=== PATIENT | male | born 1965 | race African-American/Black ===

== ENCOUNTER 2018-09-23 18:55 | Emergency (ER) | payer MEDICAID ==
--- NOTE | 2018-09-23 19:49 | ER Document Report ---
ED Medical Screen (RME) - General Chief Complaint: Numbness of Arm Stated Complaint: L ARM NUMBNESS Time Seen by Provider: 09/23/18 19:19 Mode of Arrival: Medic Information source: Patient, Emergency Med Personnel Notes: Patient presents to the emergency department via EMS for altered mental status and left arm pain. Patient reports he was playing cards with some friends when his left arm started hurting and his hand became numb. Denied other symptoms such as chest pain shortness of breath nausea vomiting. Denies trauma. EMS reports friends said patient mental status was altered when they were playing cards. Patient does admit to drinking a few beers. Reports history of back pain. 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 No weakness noted patient answering all questions appropriately. Patient complains of pain when lifting his arm above his head. Also complains of pain to the left shoulder with palpation. I have greeted and performed a rapid initial assessment of this patient. A comprehensive ED assessment and evaluation of the patient, analysis of test results and completion of the medical decision making process will be conducted by additional ED providers. Doctor's Discharge - Discharge Referrals: ANNELNO [Primary Care Provider] - Follow up as needed
--- NOTE | 2018-09-23 19:51 | RADIOLOGY REPORT (SQ) ---
EXAM DESCRIPTION: CT HEAD WITHOUT COMPLETED DATE/TIME: 09/23/2018 7:41 pm REASON FOR STUDY: altered mental status COMPARISON: None. TECHNIQUE: Axial images acquired through the brain without intravenous contrast. Images reviewed wi th bone, brain and subdural windows. Additional sagittal and coronal reconstructions were generated. Images stored on PACS. All CT scanners at this facility use dose modulation, iterative reconstruction, and/or weight based d osing when appropriate to reduce radiation dose to as low as reasonably achievable (ALARA). [facility]: Dose Right [facility]: CareDose [facility]: Dose Right [facility]: Teradose 4D [facility]: Smart Interact.io RADIATION DOSE: CT Rad equipment meets quality standard of care and radiation dose reduction techniq ues were employed. CTDIvol: 53.2 mGy. DLP: 991 mGy-cm. mGy. LIMITATIONS: None. FINDINGS: VENTRICLES: Normal size and contour. CEREBRUM: No masses. No hemorrhage. No midline shift. No evidence for acute infarction. Normal gra y/white matter differentiation. No areas of low density in the white matter. CEREBELLUM: No masses. No hemorrhage. No alteration of density. No evidence for acute infarction. EXTRAAXIAL SPACES: No fluid collections. No masses. ORBITS AND GLOBE: No intra- or extraconal masses. Normal contour of globe without masses. CALVARIUM: No fracture. PARANASAL SINUSES: No fluid or mucosal thickening. SOFT TISSUES: No mass or hematoma. OTHER: No other significant finding. IMPRESSION: NORMAL BRAIN CT WITHOUT CONTRAST. EVIDENCE OF ACUTE STROKE: NO. COMMENT: Quality ID # [id number]: Final reports with documentation of one or more dose reduction techniques (e.g., Automated exposure control, adjustment of the mA and/or kV according to patient size, use of iterative reconstruction technique) TECHNICAL DOCUMENTATION: JOB ID: [id number] [employer]- All Rights Reserved Reading location - IP/workstation name: [email or web address]
[2018-09-23 20:27] LABS: ABSOLUTE BASOPHILS # (AUTO) 0.1 10^3/uL (0.0-0.2); ABSOLUTE EOSINOPHILS # (AUTO) 0.2 10^3/uL (0.0-0.6); ABSOLUTE MONOCYTES (AUTO) 0.6 10^3/uL (0.1-1.4); ABSOLUTE NEUT (AUTO) 2.6 10^3/uL (1.7-8.2); BASOPHILS % (AUTO) 1.1 % (0-2); EOSINOPHILS % (AUTO) 4.2 % (0-6); HEMATOCRIT 39.3 % (37.9-51.0); HEMOGLOBIN 13.6 g/dL (13.5-17.0); LYMPHOCYTES % (AUTO) 36.2 % (13-45); MEAN CORPUSCULAR HEMOGLOBIN 35.9 pg (27.0-33.4); MEAN CORPUSCULAR HGB CONC 34.6 g/dL (32.0-36.0); MEAN CORPUSCULAR VOLUME 104 fl (80-97); MONOCYTES % (AUTO) 10.4 % (3-13); PLATELET COUNT 280 10^3/uL (150-450); RED BLOOD COUNT 3.78 10^6/uL (4.35-5.55); SEGMENTED NEUTROPHILS % (AUTO) 48.1 % (42-78); TOTAL CELLS COUNTED % (AUTO) 100 %; WHITE BLOOD COUNT 5.4 10^3/uL (4.0-10.5)
[2018-09-23 20:31] LABS: ALANINE AMINOTRANSFERASE 41 U/L (21-72); ALBUMIN 3.9 g/dL (3.5-5.0); ALKALINE PHOSPHATASE 60 U/L (38-126); ANION GAP 9 (5-19); ASPARTATE AMINO TRANSFERASE 72 U/L (17-59); BILIRUBIN,DIRECT 0.3 mg/dL (0.0-0.4); BILIRUBIN,TOTAL 0.5 mg/dL (0.2-1.3); BLOOD UREA NITROGEN 11 mg/dL (7-20); CALCIUM 9.1 mg/dL (8.4-10.2); CARBON DIOXIDE 27 mmol/L (22-30); CHLORIDE 105 mmol/L (98-107); CREATINE KINASE 273 U/L (55-170); GLUCOSE 79 mg/dL (75-110); POTASSIUM 4.6 mmol/L (3.6-5.0); SODIUM 141.3 mmol/L (137-145); TOTAL PROTEIN 6.9 g/dL (6.3-8.2)
[2018-09-23 20:45] LABS: CREATINE KINASE MB 2.54 ng/mL (<4.55)
[2018-09-23 20:47] LABS: TROPONIN I < 0.012 ng/mL
--- NOTE | 2018-09-23 21:39 | ER Document Report ---
ED General - General Chief Complaint: Numbness of Arm Stated Complaint: L ARM NUMBNESS Time Seen by Provider: 09/23/18 19:19 Mode of Arrival: Medic Information source: Patient, [facility] Records Notes: 53-year-old male with no reported past medical history presents with complaint of left arm pain that started 2 hours prior to arrival while playing cards. Patient describes the pain as aching, throbbing and worse with movement. He does describe some left arm and left lower extremity weakness. Denies chest pain, shortness of breath, recent illness. Denies any current medication use. Does admit to drinking alcohol earlier today, states "only 2 beers".. Does smoke tobacco. - HPI Onset: Just prior to arrival Onset/Duration: Sudden Quality of pain: Achy, Throbbing Severity: Moderate Associated symptoms: denies: Chest pain, Fever, Headache, Nausea, Vomiting, Shortness of breath, Sweating Exacerbated by: Movement Relieved by: Remaining still Similar symptoms previously: No Recently seen / treated by doctor: No Past Medical History - General Information source: Patient, Emergency Med Personnel - Social History Smoking Status: Current Every Day Smoker Cigarette use (# per day): Yes - 20 Smoking Education Provided: Yes - Smoking cessation counseling was provided for 4 minutes at the bedside Frequency of alcohol use: Occasional Drug Abuse: None Lives with: Alone Family History: Reviewed & Not Pertinent Patient has suicidal ideation: No Patient has homicidal ideation: No - Medical History Medical History: Negative Review of Systems - Review of Systems Notes: REVIEW OF SYSTEMS: CONSTITUTIONAL : Denies fever, chills, or sweats. Denies recent illness. Denies weight loss, recent hospitalizations. EENT: Denies visual changes, eye pain. Denies sore throat, oral lesions, difficulty swallowing. CARDIOVASCULAR: Denies chest pain. Denies palpitations. Denies lower extremity edema. RESPIRATORY: Denies cough. Denies shortness of breath, wheezing. GASTROINTESTINAL: Denies abdominal pain or distention. Denies nausea, vomitin g, or diarrhea. Denies blood in vomitus, stools, or per rectum. Denies black, tarry stools. Denies constipation. GENITOURINARY: Denies difficulty urinating, painful urination, frequency, blood in urine, testicular pain or penile discharge. MUSCULOSKELETAL: Denies back or neck pain or stiffness. Denies joint swelling. SKIN: Denies rash, lesions or sores. HEMATOLOGIC : Denies easy bruising or bleeding. LYMPHATIC: Denies swollen glands. NEUROLOGICAL: Denies confusion or altered mental status. Denies loss of consciousness. Denies dizziness or lightheadedness. Denies headache. Denies paralysis. Denies problems difficulty with ambulation, slurred speech. Denies sensory loss, numbness, or tingling. Denies seizures. PSYCHIATRIC: Denies anxiety or stress. Denies depression, suicidal ideation, or Physical Exam - Vital signs Vitals: Resp Pulse Ox 23 H 99 09/23/18 19:22 09/23/18 19:22 - Notes Notes: PHYSICAL EXAMINATION: GENERAL: Well-appearing, well-nourished and in no acute distress. HEAD: Atraumatic, normocephalic. EYES: Pupils equal round and reactive to light, extraocular movements intact, sclera anicteric, conjunctiva are normal. ENT: Nares patent, oropharynx clear without exudates. Moist mucous membranes. NECK: Normal range of motion, supple without lymphadenopathy LUNGS: Breath sounds clear to auscultation bilaterally and equal. No wheezes rales or rhonchi. HEART: Regular rate and rhythm without murmurs ABDOMEN: Soft, nontender, nondistended abdomen. No guarding, no rebound. No masses appreciated. Musculoskeletal: Normal range of motion, no pitting or edema. No cyanosis. NEUROLOGICAL: Cranial nerves grossly intact. Normal speech, normal gait. Normal sensory, motor exams. 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 PSYCH: Normal mood, normal affect. SKIN: Warm, Dry, normal turgor, no rashes or lesions noted. Course - Re-evaluation Re-evalutation: 09/24/18 01:16 Laboratory 09/23/18 09/23/18 09/23/18 19:20 19:20 19:20 WBC 5.4 RBC 3.78 L Hgb 13.6 Hct 39.3 MCV 104 H MCH 35.9 H MCHC 34.6 RDW 15.0 H Plt Count 280 Seg Neutrophils % 48.1 Lymphocytes % 36.2 Monocytes % 10.4 Eosinophils % 4.2 Basophils % 1.1 Absolute Neutrophils 2.6 Absolute Lymphocytes 2.0 Absolute Monocytes 0.6 Absolute Eosinophils 0.2 Absolute Basophils 0.1 Sodium 141.3 Potassium 4.6 Chloride 105 Carbon Dioxide 27 Anion Gap 9 BUN 11 Creatinine 1.12 Est GFR ( Amer) > 60 Est GFR (Non-Af Amer) > 60 Glucose 79 Calcium 9.1 Total Bilirubin 0.5 Direct Bilirubin 0.3 Neonat Total Bilirubin Not Reportable Neonat Direct Bilirubin Not Reportable Neonat Indirect Bili Not Reportable AST 72 H ALT 41 Alkaline Phosphatase 60 Creatine Kinase 273 H CK-MB (CK-2) 2.54 Troponin I < 0.012 Total Protein 6.9 Albumin 3.9 Urine Color Urine Appearance Urine pH Ur Specific [place] Urine Protein Urine Glucose (UA) Urine Ketones Urine Blood Urine Nitrite Urine Bilirubin Urine Urobilinogen Ur Leukocyte Esterase Urine WBC (Auto) Squamous Epi Cells Auto Urine Ascorbic Acid Urine Opiates Screen Urine Methadone Screen Ur Barbiturates Screen Ur Phencyclidine Scrn Ur Amphetamines Screen U Benzodiazepines Scrn Urine Cocaine Screen U Marijuana (THC) Screen Serum Alcohol 09/23/18 09/23/18 09/23/18 19:20 19:20 19:20 WBC RBC Hgb Hct MCV MCH MCHC RDW Plt Count Seg Neutrophils % Lymphocytes % Monocytes % Eosinophils % Basophils % Absolute Neutrophils Absolute Lymphocytes Absolute Monocytes Absolute Eosinophils Absolute Basophils Sodium Potassium Chloride Carbon Dioxide Anion Gap BUN Creatinine Est GFR ( Amer) Est GFR (Non-Af Amer) Glucose Calcium Total Bilirubin Direct Bilirubin Neonat Total Bilirubin Neonat Direct Bilirubin Neonat Indirect Bili AST ALT Alkaline Phosphatase Creatine Kinase CK-MB (CK-2) Troponin I Total Protein Albumin Urine Color STRAW Urine Appearance CLEAR Urine pH 5.0 Ur Specific [place] 1.004 Urine Protein NEGATIVE Urine Glucose (UA) NEGATIVE Urine Ketones NEGATIVE Urine Blood NEGATIVE Urine Nitrite NEGATIVE Urine Bilirubin NEGATIVE Urine Urobilinogen NEGATIVE Ur Leukocyte Esterase NEGATIVE Urine WBC (Auto) 1 Squamous Epi Cells Auto 1 Urine Ascorbic Acid NEGATIVE Urine Opiates Screen NEGATIVE Urine Methadone Screen NEGATIVE Ur Barbiturates Screen NEGATIVE Ur Phencyclidine Scrn NEGATIVE Ur Amphetamines Screen NEGATIVE U Benzodiazepines Scrn NEGATIVE Urine Cocaine Screen NEGATIVE U Marijuana (THC) Screen NEGATIVE Serum Alcohol 268 09/23/18 21:54 WBC RBC Hgb Hct MCV MCH MCHC RDW Plt Count Seg Neutrophils % Lymphocytes % Monocytes % Eosinophils % Basophils % Absolute Neutrophils Absolute Lymphocytes Absolute Monocytes Absolute Eosinophils Absolute Basophils Sodium Potassium Chloride Carbon Dioxide Anion Gap BUN Creatinine Est GFR ( Amer) Est GFR (Non-Af Amer) Glucose Calcium Total Bilirubin Direct Bilirubin Neonat Total Bilirubin Neonat Direct Bilirubin Neonat Indirect Bili AST ALT Alkaline Phosphatase Creatine Kinase CK-MB (CK-2) Troponin I < 0.012 Total Protein Albumin Urine Color Urine Appearance Urine pH Ur Specific [place] Urine Protein Urine Glucose (UA) Urine Ketones Urine Blood Urine Nitrite Urine Bilirubin Urine Urobilinogen Ur Leukocyte Esterase Urine WBC (Auto) Squamous Epi Cells Auto Urine Ascorbic Acid Urine Opiates Screen Urine Methadone Screen Ur Barbiturates Screen Ur Phencyclidine Scrn Ur Amphetamines Screen U Benzodiazepines Scrn Urine Cocaine Screen U Marijuana (THC) Screen Serum Alcohol Head CT 09/23/18 00:00 IMPRESSION: NORMAL BRAIN CT WITHOUT CONTRAST. EVIDENCE OF ACUTE STROKE: NO. Head MRI 09/23/18 21:35 IMPRESSION: No acute intracranial abnormality. Shoulder X-Ray 09/23/18 21:35 IMPRESSION: Mild degenerative changes. copyright 2010 [employer] All Rights Reserved Chest X-Ray 09/23/18 21:41 IMPRESSION: Pulmonary vascular congestion. Temp Pulse Resp BP Pulse Ox 19 138/84 H 94 09/23/18 23:01 09/23/18 23:01 09/23/18 21:01 53-year-old male presents with left shoulder pain that occurred just prior to arrival. Denies injury. Vital signs reviewed and within normal limits upon arrival. 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 Vital signs reviewed. Previous medical records and nursing notes reviewed. Patient denies any chest pain, shortness of breath. Because of decreased strength in the left upper extremity and reports of altered mental status CT head was obtained and showed no acute process. MRI was also obtained and showed no evidence of stroke. CBC, CMP, cardiac enzymes are unremarkable. Chest x-ray shows evidence of pulmonary vascular congestion without evidence of cardiomegaly. Patient's lung sounds are clear and he denies any shortness of breath or peripheral edema. Smoking cessation advised. Also advised that patient should establish primary care. Patient's alcohol level is 268 which is not consistent with his report of only drinking 2 beers. He is alert, awake and ambulates without difficulty but will need to find a ride home. Patient was given Toradol and prescribed Mobic for home. Patient was evaluated and treated as appropriate for the patient's presenting symptoms and complaint, with consideration of any critical or life threatening conditions that may be associated with their obtained history and exam as noted above. All results were discussed with patient. Patient provided the opportunity to ask questions, and express concerns. Patient was educated on treatments based on their presumed diagnosis as noted above. At this time we will discharge the patient with return precautions and follow-up recommendations. Verbal discharge instructions given a the bedside. Medication warnings reviewed. Patient is in agreement with this plan and has verbalized understanding of return precautions. After careful consideration I feel that that patient can be safely discharged from the emergency department, they were advised to followup with a primary care physician in 2-3 days. Dictation on this chart was performed using voice recognition software and may result in unintended grammatical, spelling, syntax or errors. 09/24/18 02:37 - Vital Signs Vital signs: Temp Pulse Resp BP Pulse Ox 14 138/90 H 100 09/24/18 01:01 09/24/18 00:01 09/24/18 01:01 - Laboratory Result Diagrams: 09/23/18 19:20 09/23/18 19:20 Laboratory results interpreted by me: 09/23/18 09/23/18 19:20 19:20 RBC 3.78 L MCV 104 H MCH 35.9 H RDW 15.0 H AST 72 H Creatine Kinase 273 H - Diagnostic Test Radiology reviewed: Image reviewed, Reports reviewed Discharge - Discharge Clinical Impression: Arthritis of left shoulder region, Elevated blood pressure reading, Tobacco use, Pulmonary vascular congestion Alcohol intoxication Qualifiers: Complication of substance-induced condition: uncomplicated Qualified Code(s): F10.920 - Alcohol use, unspecified with intoxication, uncomplicated Condition: Good Disposition: HOME, SELF-CARE Instructions: Acute Alcohol Intoxication ([facility]), Arthritis ([facility]), Exercise Program for the Shoulder ([facility]), Shoulder Injury ([facility]) Additional Instructions: Follow up with your [id number] hours for further care or return to the ED IMMEDIATELY if symptoms worsen or you have any concerns. If you cannot afford to follow up with your primary care physician a list of low cost clinics have been provided at the end of your discharge papers as well. Most prescribed medications have multiple side effects. The safest thing to do is when filling your prescription speak to your pharmacist regarding possible interactions with your normal home medications and over the counter medications such as Ibuprofen, Tylenol, Benadryl. If you experience any symptoms that cause you discomfort or concern you should discontinue the medication immediately and return to the emergency room or call your primary care physician. Prescriptions: Meloxicam [Mobic] 15 mg PO DAILY #14 tablet Forms: Elevated Blood Pressure, Smoking Cessation Education Referrals: LOCALMD,NO [NO LOCAL MD] - Follow up as needed [facility] [NO LOCAL MD] - Follow up in 3-5 days
[2018-09-23 22:07] LABS: APPEARANCE,URINE CLEAR; BILIRUBIN,URINE NEGATIVE (NEGATIVE); COLOR,URINE STRAW; GLUCOSE, URINE NEGATIVE (NEGATIVE); KETONES,URINE NEGATIVE (NEGATIVE); LEUKOCYTE ESTERASE,URINE NEGATIVE (NEGATIVE); NITRITE,URINE NEGATIVE (NEGATIVE); PROTEIN,URINE NEGATIVE (NEGATIVE); URINE SPECIFIC GRAVITY 1.004; UROBILINOGEN,URINE NEGATIVE mg/dL (<2.0)
[2018-09-23] MEDS ORDERED: MORPHINE SULFATE 10 MG/ML INJ IV ONE (22:24)
[2018-09-23 22:38] LABS: URINE AMPHETAMINES SCREEN NEGATIVE; URINE BARBITURATES SCREEN NEGATIVE; URINE BENZODIAZEPINES SCREEN NEGATIVE; URINE COCAINE SCREEN NEGATIVE; URINE MARIJUANA (THC) SCREEN NEGATIVE; URINE METHADONE SCREEN NEGATIVE; URINE PHENCYCLIDINE SCREEN NEGATIVE
--- NOTE | 2018-09-23 22:46 | RADIOLOGY REPORT (SQ) ---
MR BRAIN WITHOUT IV CONTRAST HISTORY: Left arm weakness. COMPARISON: CT scan from earlier the same day. TECHNIQUE: Multisequence, multiplanar MR imaging of the brain was performed without the administration of intravenous gadolinium. FINDINGS: The ventricles, sulci and cisterns are age appropriate. No restricted diffusion to indicate acute infarction. No intracranial hemorrhage, extra-axial fluid collection, mass effect, or midline shift. The paranasal sinuses and mastoid air cells are clear. The orbits are unremarkable. The vascular flow voids are preserved. The calvarium is intact. IMPRESSION: No acute intracranial abnormality.
--- NOTE | 2018-09-23 22:54 | RADIOLOGY REPORT (SQ) ---
EXAM DESCRIPTION: XR CHEST 2 VIEWS COMPLETED DATE/TME: 09/23/2018 21:41 CLINICAL HISTORY: 53 years Male, Left arm pain COMPARISON: None. NUMBER OF VIEWS/TECHNIQUE: 2, Frontal, Lateral FINDINGS: Adequate lung volume, pulmonary vascular congestion, normal cardiac silhouette, and lateral right seventh rib deformity consistent with prior injury. IMPRESSION: Pulmonary vascular congestion.
--- NOTE | 2018-09-23 22:55 | RADIOLOGY REPORT (SQ) ---
EXAM DESCRIPTION: XR SHOULDER 2 OR MORE VIEWS COMPLETED DATE/TME: 09/23/2018 21:35 CLINICAL HISTORY: 53 years, Male, pain COMPARISON: None. NUMBER OF VIEWS: TECHNIQUE: LIMITATIONS: None. FINDINGS: No fracture or dislocation. There are mild degenerative changes involving the glenohumeral and acromioclavicular joints. IMPRESSION: Mild degenerative changes. copyright 2010 [employer]- All Rights Reserved
--- NOTE | 2018-09-23 23:00 | EKG REPORT ---
SEVERITY:- ABNORMAL ECG - SINUS RHYTHM ABNRM R PROG, CONSIDER ASMI OR LEAD PLACEMENT ABNORMAL T, CONSIDER ISCHEMIA, INFERIOR LEADS : Confirmed by: Annmarie Vogt MD 23-Sep-2018 22:59:55
[2018-09-24] MEDS ORDERED: KETOROLAC TROMETHAMINE INJ/PF 30 MG/1 ML SDV IV ONE (00:02)
[2018-09-24] MEDS ORDERED: ACETAMINOPHEN 325 MG TABLET PO ONE (00:02)
[2018-09-24 07:04] VITALS: BP 148/84
== END 2018-09-24 07:20 | disposition home or self-care (01) ==
LOC: ER 18:55
DX: M19.012 Primary osteoarthritis, left shoulder (principal); F10.129 Alcohol abuse with intoxication, unspecified; Y90.8 Blood alcohol level of 240 mg/100 ml or more; R03.0 Elevated blood-pressure reading, without diagnosis of hypertension; R09.89 Other specified symptoms and signs involving the circulatory and respiratory systems; R20.0 Anesthesia of skin; M79.602 Pain in left arm; M25.512 Pain in left shoulder; R53.1 Weakness; F17.210 Nicotine dependence, cigarettes, uncomplicated; Z71.6 Tobacco abuse counseling
CPT/HCPCS: 93005; 99406; 99284; 96374; 36415; 82553; 80307 ×2; 82550; 85025; 80053; 81001; 84484; 70551; 71046; 73030; 70450; 93010; J3490; J1885

== ENCOUNTER 2019-10-02 18:24 | Emergency (ER) | payer MEDICAID ==
[2019-10-02] MEDS ORDERED: ACETAMINOPHEN 325 MG TABLET PO ONE (19:48)
--- NOTE | 2019-10-02 19:50 | ER Document Report ---
ED Medical Screen (RME) - General Chief Complaint: Leg Pain Stated Complaint: LEG PAIN Time Seen by Provider: 10/02/19 19:43 Information source: Patient Notes: Patient presents complaining of left lower extremity pain and swelling for the past 3 days. Patient denies any injury. Patient states pain is worse to the left knee although the entire leg is painful. Patient does have a history of gout. Patient denies any fever or injury. I have greeted and performed a rapid initial assessment of this patient. A comprehensive ED assessment and evaluation of the patient, analysis of test results and completion of the medical decision making process will be conducted by additional ED providers. - Related Data Allergies/Adverse Reactions: No Known Allergies Allergy (Unverified 10/02/19 19:48) Past Medical History - Social History Chew tobacco use (# tins/day): No Frequency of alcohol use: Occasional Drug Abuse: None Renal/ Medical History: Denies: Hx Peritoneal Dialysis Physical Exam - Vital signs Vitals: Temp Pulse Resp BP Pulse Ox 98.6 F 110 H 20 143/93 H 99 10/02/19 19:05 10/02/19 19:05 10/02/19 19:05 10/02/19 19:05 10/02/19 19:05 - General General appearance: Appears well, Alert Notes: Left medial knee tenderness, tenderness with palpation of left calf Course - Vital Signs Vital signs: Temp Pulse Resp BP Pulse Ox 98.6 F 110 H 20 143/93 H 99 10/02/19 19:05 10/02/19 19:05 10/02/19 19:05 10/02/19 19:05 10/02/19 19:05
[2019-10-02 20:30] LABS: ABSOLUTE BASOPHILS # (AUTO) 0.1 10^3/uL (0.0-0.2); ABSOLUTE EOSINOPHILS # (AUTO) 0.3 10^3/uL (0.0-0.6); ABSOLUTE LYMPHOCYTES (AUTO) 1.3 10^3/uL (0.5-4.7); ABSOLUTE MONOCYTES (AUTO) 0.9 10^3/uL (0.1-1.4); ABSOLUTE NEUT (AUTO) 5.5 10^3/uL (1.7-8.2); BASOPHILS % (AUTO) 0.6 % (0-2); EOSINOPHILS % (AUTO) 3.3 % (0-6); HEMOGLOBIN 14.9 g/dL (13.5-17.0); LYMPHOCYTES % (AUTO) 16.5 % (13-45); MEAN CORPUSCULAR HEMOGLOBIN 37.1 pg (27.0-33.4); MEAN CORPUSCULAR HGB CONC 34.6 g/dL (32.0-36.0); MEAN CORPUSCULAR VOLUME 107 fl (80-97); MONOCYTES % (AUTO) 11.5 % (3-13); PLATELET COUNT 168 10^3/uL (150-450); RED BLOOD COUNT 4.01 10^6/uL (4.35-5.55); RED CELL DISTRIBUTION WIDTH 14.4 % (11.5-14.0); SEGMENTED NEUTROPHILS % (AUTO) 68.1 % (42-78); TOTAL CELLS COUNTED % (AUTO) 100 %; WHITE BLOOD COUNT 8.1 10^3/uL (4.0-10.5)
--- NOTE | 2019-10-02 20:33 | RADIOLOGY REPORT (SQ) ---
EXAM DESCRIPTION: XR KNEE 4 OR MORE VIEWS COMPLETED DATE/TME: 10/02/2019 19:47 CLINICAL HISTORY: 54 years, Male, L knee pain COMPARISON: None. NUMBER OF VIEWS: 4 left TECHNIQUE: LIMITATIONS: None. FINDINGS: No acute displaced fracture. Alignment is anatomic. Small joint effusion. No soft tissue swelling IMPRESSION: No acute displaced fracture. Small joint effusion copyright 2010 [employer]- All Rights Reserved
[2019-10-02 20:51] LABS: ANION GAP 8 (5-19); BLOOD UREA NITROGEN 4 mg/dL (7-20); CALCIUM 9.1 mg/dL (8.4-10.2); CARBON DIOXIDE 28 mmol/L (22-30); CHLORIDE 101 mmol/L (98-107); GLUCOSE 101 mg/dL (75-110); POTASSIUM 3.8 mmol/L (3.6-5.0); URIC ACID 7.6 mg/dL (3.5-8.5)
--- NOTE | 2019-10-02 21:14 | RADIOLOGY REPORT (SQ) ---
EXAM DESCRIPTION: [employer]: US EXTREMITY VEINS UNILATERAL CLINICAL HISTORY: 54 years Male; LLE pain, swelling TECHNIQUE: Multiple grayscale sonographic images of the leg were obtained utilizing a high-frequency linear array transducer supplemented with color Doppler, compression and augmentation techniques. COMPARISON: None. FINDINGS: Left leg veins: Common femoral: normal Greater saphenous: normal upper Superficial femoral: normal mid Superficial femoral: normal lower Superficial femoral: normal Popliteal: normal Posterior tibial: normal IMPRESSION: 1. No sonographic evidence for left lower extremity deep venous thrombosis.
[2019-10-03] MEDS ORDERED: IBUPROFEN 600 MG TABLET PO ONE (00:15)
--- NOTE | 2019-10-03 00:17 | ER Document Report ---
ED Extremity Problem, Lower - General Chief Complaint: Leg Pain Stated Complaint: LEG PAIN Time Seen by Provider: 10/02/19 19:43 Primary Care Provider: [facility] [Provider [facility]] - Follow up as needed [facility] [Provider Group] - Follow up as needed [facility] [Provider Group] - Follow up as needed [facility] [Provider Group] - Follow up as needed [facility] [Provider Group] - Follow up as needed Mode of Arrival: Ambulatory Information source: Patient Notes: 54-year-old male presented to ED for complaint of left lower extremity pain and swelling x3 days. He states he does have a history of gout and he does walk around a lot but has not done anything that he knows of the injury this leg. He states it is been hurting him along his knee and down the leg worse for the last 3 days. Patient states he does not go to the doctor drinks about 5 beers a day smokes about 5 cigarettes a day and does not use any kind of alcohol. He states he does have Medicaid he just does not go to the doctor. Patient is alert oriented respirations regular nonlabored speaking in full sentences. TRAVEL OUTSIDE OF THE [place] IN LAST 30 DAYS: No - HPI Patient complains to provider of: Pain, Swelling Location: Knee, Leg Occurred: Other - 3 days Quality of pain: Achy, Sharp Severity: Moderate Pain Level: 3 Recent injury: No Associated symptoms: Painful ambulation Exacerbated by: Hanging down, Movement, Walking Relieved by: Nothing - Related Data Allergies/Adverse Reactions: No Known Allergies Allergy (Unverified 10/02/19 19:48) Past Medical History - General Information source: Patient - Social History Smoking Status: Current Every Day Smoker Chew tobacco use (# tins/day): No Frequency of alcohol use: Occasional Drug Abuse: None Lives with: Family Family History: Reviewed & Not Pertinent Patient has suicidal ideation: No Patient has homicidal ideation: No - Past Medical History Cardiac Medical History: Reports: Hx Hypertension Pulmonary Medical History: Reports: None EENT Medical History: Reports: None Neurological Medical History: Reports: None Endocrine Medical History: Reports: None Renal/ Medical History: Reports: None Malignancy Medical History: Reports None GI Medical History: Reports: None Musculoskeletal Medical History: Reports Hx Arthritis, Reports Hx Gout, Reports Hx Musculoskeletal Deformity, Reports Hx Musculoskeletal Trauma Skin Medical History: Reports None Psychiatric Medical History: Reports: None Traumatic Medical History: Reports: None Infectious Medical History: Reports: None Surgical Hx: Negative Past Surgical History: Reports: None Review of Systems - Review of Systems Constitutional: No symptoms reported EENT: No symptoms reported Cardiovascular: No symptoms reported Respiratory: No symptoms reported Gastrointestinal: No symptoms reported Genitourinary: No symptoms reported Male Genitourinary: No symptoms reported Musculoskeletal: No symptoms reported Skin: No symptoms reported Hematologic/Lymphatic: No symptoms reported Neurological/Psychological: No symptoms reported -: Yes All other systems reviewed and negative Physical Exam - Vital signs Vitals: Temp Pulse Resp BP Pulse Ox 98.6 F 110 H 20 143/93 H 99 10/02/19 19:05 10/02/19 19:05 10/02/19 19:05 10/02/19 19:05 10/02/19 19:05 Interpretation: Normal - General General appearance: Appears well, Alert - HEENT Head: Normocephalic, Atraumatic Eyes: Normal Pupils: PERRL - Respiratory Respiratory status: No respiratory distress Chest status: Nontender Breath sounds: Normal Chest palpation: Normal - Cardiovascular Rhythm: Regular Heart sounds: Normal auscultation Murmur: No - Abdominal Inspection: Normal Distension: No distension Bowel sounds: Normal Tenderness: Nontender Organomegaly: No organomegaly - Back Back: Normal, Nontender - Extremities General upper extremity: Normal inspection, Nontender, Normal color, Normal ROM, Normal temperature General lower extremity: Normal color, Normal ROM, Normal temperature, Normal weight bearing. No: Artem's sign Knee: Tender, Joint effusion, Pain with ROM, Patellar tendon intact, Tender joint line. No: Abrasion, Deformity, Dislocation, Drawer's test instability, Ecchymosis, Instability, Laceration, Laxity with valgus stress, Laxity with varus stress, Popliteal fossa tender - Neurological Neuro grossly intact: Yes Cognition: Normal Orientation: AAOx4 Corey Coma Scale Eye Opening: Spontaneous Corey Coma Scale Verbal: Oriented [place] Coma Scale Motor: Obeys Commands Corey Coma Scale Total: 15 Speech: Normal Motor strength normal: LUE, RUE, LLE, RLE Sensory: Normal - Psychological Associated symptoms: Normal affect, Normal mood - Skin Skin Temperature: Warm Skin Moisture: Dry Skin Color: Normal Course - Re-evaluation Re-evalutation: 10/03/19 06:34 Discussed x-rays with patient and written report of x-ray given to patient to follow-up with primary doctor. Patient was treated with Virgilio wrap to the knee and instructed to follow-up with his primary and orthopedic. Patient verbalized understanding agreement with treatment plan and patient was discharged home. - Vital Signs Vital signs: Temp Pulse Resp BP Pulse Ox 97.6 F 91 18 141/96 H 98 10/03/19 00:30 10/03/19 00:30 10/03/19 00:30 10/03/19 00:30 10/03/19 00:30 - Laboratory Result Diagrams: 10/02/19 20:16 10/02/19 20:16 Laboratory results interpreted by me: 10/02/19 10/02/19 20:16 20:16 RBC 4.01 L MCV 107 H MCH 37.1 H RDW 14.4 H BUN 4 L - Diagnostic Test Radiology reviewed: Image reviewed, Reports reviewed Procedures - Immobilization Left Knee Time completed: 00:30 Immobilizer type: Virgilio wrap Performed by: PCT Post-Proc Neuro Vasc Exam: Normal Alignment checked and good: Yes Discharge - Discharge Clinical Impression: Effusion, left knee Condition: Stable Disposition: HOME, SELF-CARE Additional Instructions: Knee Effusion You have a fluid collection in the knee joint, called an effusion. This fluid build up can occur from irritation of the synovial membrane lining the knee joint or from a more serious injury to the knee. Irritation of the membrane can occur from excessive, repetitive knee activitiy, like kneeling or squatting for extended periods or even just excessive walking, jogging, or skiing. Effusions also can occur with infections in the joint and with some arthritic conditions, especially gout. Fluid collections in these situations are usually yellow in color and either clear or cloudy in appearance. Significant injury to the knee can result in fluid collection which is partly or entirely blood and this condition is known as a hemarthrosis of the knee joint. If the fluid collection is not too large and/or painful, it can be managed conservatively with rest, ice packs, and anti-inflammatory and pain medications as needed. If the fluid collection is large and very painful, the knee joint can be drained (aspirated) by a relatively minor procedure of inserting a needle in the joint and removing some or all of the fluid present. If your knee was aspirated, you should rest it as much as possible for a few days, keep a pressure dressing around the knee and apply ice packs for at least 48 - 72 hours. If there are signs of developing infection such as heat and redness of the knee, fever, etc. you should return immediately for a recheck. Acetaminophen Acetaminophen may be taken for pain relief or fever control. It's much safer than aspirin, offering a wider range of "safe" dosages. It is safe during . Some brand names are Tylenol, Panadol, Datril, Anacin 3, Tempra, and Liquiprin. Acetaminophen can be repeated every four hours. The following are maximum recommended dosages: WEIGHT Dose Drops Elixir Chewable(80mg) (LBS.) drprs=droppers tsp=teaspoon 6 40 mg .4 ml (1/2) 6-11 80 mg .8 ml (full) 1/2 tsp 1 tab 12-16 120 mg 1 1/2 drprs 3/4 tsp 1 1/2 tabs 17-23 160 mg 2 drprs 1 tsp 2 tabs 24-30 240 mg 3 drprs 1 1/2 tsp 3 tabs 30-35 320 mg 2 tsp 4 tabs 36-41 360 mg 2 1/4 tsp 4 1/2 tabs 42-47 400 mg 2 1/2 tsp 5 tabs 48-53 480 mg 3 tsp 6 tabs 54-59 520 mg 3 1/4 tsp 6 1/2 tabs 60-64 560 mg 3 1/2 tsp 7 tabs 65-70 600 mg 3 3/4 tsp 7 1/2 tabs 71-76 640 mg 4 tsp 8 tabs 77-82 720 mg 4 1/2 tsp 9 tabs 83-88 800 mg 5 tsp 10 tabs >89 pounds or adults 650 mg to 900 mg Acetaminophen can be repeated every four hours. Maximum daily dose not to exceed 4000 mg. These maximum recommended dosages are slightly higher than the dosages written on the product container, but these dosages are very safe and well below the toxic dosage for acetaminophen. Ibuprofen Ibuprofen is an excellent, safe drug for pain control. In addition, it has potent antiinflammatory effects which are beneficial, especially in the treatment of injuries, arthritis, or tendonitis. It's best to take ibuprofen with food. Persons with ulcer disease or allergy to aspirin should notify their physician of this before taking ibuprofen. Take the medication exactly as prescribed. Don't take additional doses unless instructed to do so by your doctor. If you develop wheezing, shortness of breath, hives, faintness, stomach pain, vomiting, or dark black stools, return for re-evaluation at once. Gout Diet Changing your diet can decrease the uric acid in your blood. High levels of uric acid cause gouty arthritis and uric acid kidney stones. If you have gout, you should avoid meats that are high in purine. Meat products to avoid include liver, kidneys, and brains. In general, poultry is better than red meats. Seafoods to avoid include anchovies, sardines, jolley, mackerel, and scallops. In addition to limiting purine-rich foods, people with gout should limit protein intake to 10-15% of total calories. Carbohydrate intake should be around 50% of total daily calories. Limit fat intake to 30% of total daily calories. Cholesterol intake should be less than 300 mg/day. Maintain or achieve a healthy body weight. Weight loss should be gradual. Rapid weight loss can actually increase uric acid levels temporarily. Alcohol, especially beer, should be avoided. Get plenty of fluids. This dilutes urinary uric acid, and helps prevent uric acid kidney stones. Drink eight to twelve cups of water daily. FOLLOW-UP CARE: If you have been referred to a physician for follow-up care, call the physicians office for an appointment as you were instructed or within the next two days. If you experience worsening or a significant change in your symptoms, notify the physician immediately or return to the Emergency Department at any time for re-evaluation. Forms: Elevated Blood Pressure, Smoking Cessation Education Referrals: [facility] [Provider Group] - Follow up as needed [facility] [Provider Group] - Follow up as needed [facility] [Provider Group] - Follow up as needed [facility] [Provider Group] - Follow up as needed [facility] [Provider Group] - Follow up as needed
[2019-10-03 00:31] VITALS: BP 141/96
== END 2019-10-03 00:31 | disposition home or self-care (01) ==
LOC: ER 18:24
DX: M25.462 Effusion, left knee (principal); M79.605 Pain in left leg; M79.89 Other specified soft tissue disorders; F10.10 Alcohol abuse, uncomplicated; F17.210 Nicotine dependence, cigarettes, uncomplicated; I10 Essential (primary) hypertension
CPT/HCPCS: 99284; 36415; 84550; 85025; 80048; 93971; 73564; J3490 ×2

== ENCOUNTER 2020-05-01 14:38 | Observation (INO) | payer MEDICAID ==
--- NOTE | 2020-05-01 15:11 | ER Document Report ---
ED Medical Screen (RME) - General Chief Complaint: Abdominal Pain Stated Complaint: ABDOMINAL PAIN,DIZZY WEAKNESS Time Seen by Provider: 05/01/20 14:52 TRAVEL OUTSIDE OF THE [place] IN LAST 30 DAYS: No - HPI Notes: 05/01/20 15:03 54-year male presents to the emergency room for evaluation of epigastric abdominal pain, intermittent chest pain with sob at becoming worse today. Patient states that he passed out this morning at 11 AM getting out of a truck. Reports his friend drove him here. Patient started drinking at 4 AM this morning, drinking beer. Patient states his chest pain last for about 1 minute, then goes away. states he takes Tums for his pain. Reports his epigastric pain is 5 out of 5, states last time he vomited was a couple of hours ago. Patient is a poor historian and I suspect that he is currently under the influence I have greeted and performed a rapid initial assessment of this patient. A comprehensive ED assessment and evaluation of the patient, analysis of test resu lts and completion of the medical decision making process will be conducted by additional ED providers. PHYSICAL EXAMINATION: GENERAL: Chronically ill, malnourished and in no acute distress. CV: s1, s2 regular LUNGS: No respiratory distress abd: epigastric abd pain 05/01/20 15:11 05/01/20 15:16 - Related Data Allergies/Adverse Reactions: No Known Allergies Allergy (Verified 05/01/20 15:10) Past Medical History - Past Medical History Cardiac Medical History: Reports: Hx Hypertension Renal/ Medical History: Denies: Hx Peritoneal Dialysis Musculoskeltal Medical History: Reports Hx Arthritis, Reports Hx Gout, Reports Hx Musculoskeletal Deformity, Reports Hx Musculoskeletal Trauma Physical Exam - Vital signs Vitals: Temp Pulse Resp BP Pulse Ox 98.9 F 109 H 18 121/80 96 05/01/20 14:43 05/01/20 14:43 05/01/20 14:43 05/01/20 14:43 05/01/20 14:43 Course - Vital Signs Vital signs: Temp Pulse Resp BP Pulse Ox 98.9 F 109 H 18 121/80 96 05/01/20 14:43 05/01/20 14:43 05/01/20 14:43 05/01/20 14:43 05/01/20 14:43
--- NOTE | 2020-05-01 15:55 | RADIOLOGY REPORT (SQ) ---
EXAM DESCRIPTION: CHEST 2 VIEWS IMAGES COMPLETED DATE/TIME: 05/01/2020 3:43 pm REASON FOR STUDY: cp with sob today COMPARISON: 09/23/2018 EXAM PARAMETERS: NUMBER OF VIEWS: two views TECHNIQUE: Digital Frontal and Lateral radiographic views of the chest acquired. RADIATION DOSE: NA LIMITATIONS: none FINDINGS: LUNGS AND PLEURA: No opacities, masses or pneumothorax. No pleural effusion. MEDIASTINUM AND HILAR STRUCTURES: No masses or contour abnormalities. HEART AND VASCULAR STRUCTURES: Heart normal size. No evidence for failure. BONES: No acute findings. HARDWARE: None in the chest. OTHER: No other significant finding. IMPRESSION: NO ACUTE RADIOGRAPHIC FINDING IN THE CHEST. TECHNICAL DOCUMENTATION: JOB ID: [id number] 2010 [employer]- All Rights Reserved Reading location - IP/workstation name: [email or web address]
[2020-05-01] MEDS ORDERED: NORMAL SALINE 1000 ML 1,000 ML IV ONE (15:57)
[2020-05-01] MEDS ORDERED: LIDOCAINE 2% VISCOUS SOLN 15 ML UDCUP PO ONE (15:58)
[2020-05-01] MEDS ORDERED: MAG HYDROX/AL HYDROX/SIMETH SUSP 30 ML UDCUP PO ONE (15:58)
[2020-05-01] MEDS ORDERED: METOCLOPRAMIDE HCL ORAL SOLN 10 MG/10 ML UDCUP PO ONE (15:58)
[2020-05-01 16:16] LABS: ABSOLUTE EOSINOPHILS # (AUTO) 0.2 10^3/uL (0.0-0.6); ABSOLUTE LYMPHOCYTES (AUTO) 2.5 10^3/uL (0.5-4.7); ABSOLUTE MONOCYTES (AUTO) 0.7 10^3/uL (0.1-1.4); ABSOLUTE NEUT (AUTO) 1.8 10^3/uL (1.7-8.2); BASOPHILS % (AUTO) 0.5 % (0-2); EOSINOPHILS % (AUTO) 4.6 % (0-6); HEMOGLOBIN 15.1 g/dL (13.5-17.0); LYMPHOCYTES % (AUTO) 47.6 % (13-45); MEAN CORPUSCULAR HEMOGLOBIN 36.8 pg (27.0-33.4); MEAN CORPUSCULAR HGB CONC 34.4 g/dL (32.0-36.0); MEAN CORPUSCULAR VOLUME 107 fl (80-97); MONOCYTES % (AUTO) 13.3 % (3-13); PLATELET COUNT 242 10^3/uL (150-450); RED BLOOD COUNT 4.12 10^6/uL (4.35-5.55); RED CELL DISTRIBUTION WIDTH 13.7 % (11.5-14.0); TOTAL CELLS COUNTED % (AUTO) 100 %; WHITE BLOOD COUNT 5.2 10^3/uL (4.0-10.5)
[2020-05-01 16:20] LABS: APPEARANCE,URINE CLEAR; BILIRUBIN,URINE NEGATIVE (NEGATIVE); COLOR,URINE YELLOW; GLUCOSE, URINE NEGATIVE (NEGATIVE); KETONES,URINE NEGATIVE (NEGATIVE); LEUKOCYTE ESTERASE,URINE NEGATIVE (NEGATIVE); NITRITE,URINE NEGATIVE (NEGATIVE); PROTEIN,URINE NEGATIVE (NEGATIVE); URINE SPECIFIC GRAVITY 1.004; UROBILINOGEN,URINE NEGATIVE mg/dL (<2.0)
[2020-05-01 16:34] LABS: URINE AMPHETAMINES SCREEN NEGATIVE; URINE BARBITURATES SCREEN NEGATIVE; URINE BENZODIAZEPINES SCREEN NEGATIVE; URINE COCAINE SCREEN NEGATIVE; URINE MARIJUANA (THC) SCREEN NEGATIVE; URINE METHADONE SCREEN NEGATIVE; URINE PHENCYCLIDINE SCREEN NEGATIVE
[2020-05-01 16:37] LABS: ALBUMIN 4.1 g/dL (3.5-5.0); ALKALINE PHOSPHATASE 67 U/L (38-126); ANION GAP 10 (5-19); ASPARTATE AMINO TRANSFERASE 96 U/L (17-59); BILIRUBIN,DIRECT 0.1 mg/dL (0.0-0.4); BILIRUBIN,TOTAL 0.4 mg/dL (0.2-1.3); BLOOD UREA NITROGEN 9 mg/dL (7-20); CALCIUM 10.3 mg/dL (8.4-10.2); CARBON DIOXIDE 27 mmol/L (22-30); CHLORIDE 95 mmol/L (98-107); GLUCOSE 90 mg/dL (75-110); POTASSIUM 4.6 mmol/L (3.6-5.0); TOTAL PROTEIN 7.5 g/dL (6.3-8.2)
[2020-05-01 16:47] LABS: ALCOHOL 384 mg/dL (NONE DETECTED)
--- NOTE | 2020-05-01 17:58 | RADIOLOGY REPORT (SQ) ---
EXAM DESCRIPTION: CT HEAD WITHOUT IMAGES COMPLETED DATE/TIME: 05/01/2020 5:15 pm REASON FOR STUDY: confusion COMPARISON: 09/23/2018 TECHNIQUE: Axial images acquired through the brain without intravenous contrast. Images reviewed wi th bone, brain and subdural windows. Additional sagittal and coronal reconstructions were generated. Images stored on PACS. All CT scanners at this facility use dose modulation, iterative reconstruction, and/or weight based d osing when appropriate to reduce radiation dose to as low as reasonably achievable (ALARA). [facility]: Dose Right [facility]: CareDose [facility]: Dose Right [facility]: Teradose 4D [facility]: [employer] RADIATION DOSE: CT Rad equipment meets quality standard of care and radiation dose reduction techniq ues were employed. CTDIvol: 53.2 mGy. DLP: 1070 mGy-cm. mGy. LIMITATIONS: None. FINDINGS: VENTRICLES: Normal size and contour. CEREBRUM: No masses. No hemorrhage. No midline shift. No evidence for acute infarction. Normal gra y/white matter differentiation. No areas of low density in the white matter. CEREBELLUM: No masses. No hemorrhage. No alteration of density. No evidence for acute infarction. EXTRAAXIAL SPACES: No fluid collections. No masses. ORBITS AND GLOBE: No intra- or extraconal masses. Normal contour of globe without masses. CALVARIUM: No fracture. PARANASAL SINUSES: No fluid or mucosal thickening. SOFT TISSUES: No mass or hematoma. OTHER: No other significant finding. IMPRESSION: NORMAL BRAIN CT WITHOUT CONTRAST. EVIDENCE OF ACUTE STROKE: NO. COMMENT: Quality ID # [id number]: Final reports with documentation of one or more dose reduction techniques (e.g., Automated exposure control, adjustment of the mA and/or kV according to patient size, use of iterative reconstruction technique) TECHNICAL DOCUMENTATION: JOB ID: [id number] 2010 [employer]- All Rights Reserved Reading location - IP/workstation name: [email or web address]
--- NOTE | 2020-05-01 18:11 | RADIOLOGY REPORT (SQ) ---
EXAM DESCRIPTION: CT ABD/PELVIS WITH IV ONLY IMAGES COMPLETED DATE/TIME: 05/01/2020 5:19 pm REASON FOR STUDY: epigatric abd pain, vomiting x 1day COMPARISON: None. TECHNIQUE: CT scan of the abdomen and pelvis performed using helical scanning technique with dynamic intravenous contrast injection. No oral contrast. Images reviewed with lung, soft tissue, and bone windows. Reconstructed coronal and sagittal MPR images reviewed. Delayed images for evaluation of the urinary system also acquired. All images stored on PACS. All CT scanners at this facility use dose modulation, iterative reconstruction, and/or weight based d osing when appropriate to reduce radiation dose to as low as reasonably achievable (ALARA). [facility]: Dose Right [facility]: CareDose [facility]: Dose Right [facility]: Teradose 4D [facility]: [employer] CONTRAST TYPE AND DOSE: contrast/concentration: Isovue 350.00 mmol/ml; Total Contrast Delivered: 83. 0 ml; Total Saline Delivered: 69.0 ml RENAL FUNCTION: BUN 12; creatinine 1.10 RADIATION DOSE: CT Rad equipment meets quality standard of care and radiation dose reduction techniq ues were employed. CTDIvol: 5.7 - 7.4 mGy. DLP: 747 mGy-cm.. LIMITATIONS: None. FINDINGS: LOWER CHEST: No significant findings. No nodules or infiltrates. LIVER: Normal size. Marked hepatic steatosis. No focal mass lesion. No intrahepatic biliary dilata tion. SPLEEN: Normal size. No focal lesions. PANCREAS: No masses. No significant calcifications. No adjacent inflammation or peripancreatic fluid collections. Pancreatic duct not dilated. GALLBLADDER: No identified stones by CT criteria. No inflammatory changes to suggest cholecystitis. ADRENAL GLANDS: No significant masses or asymmetry. RIGHT KIDNEY AND URETER: No solid masses. No significant calcifications. No hydronephrosis or hyd roureter. LEFT KIDNEY AND URETER: No solid masses. No significant calcifications. No hydronephrosis or hydr oureter. AORTA AND VESSELS: No aneurysm. No dissection. Renal arteries, SMA, celiac without stenosis. RETROPERITONEUM: No retroperitoneal adenopathy, hemorrhage or masses. BOWEL AND PERITONEAL CAVITY: No masses or inflammatory changes. No free fluid or peritoneal masses. APPENDIX: Normal. PELVIS: No mass. No free fluid. Normal bladder. ABDOMINAL WALL: No masses. No hernias. BONES: Incidental finding of the appearance of subcortical ground-glass opacity with serpiginous scle rotic margins involving the subarticular femoral heads, consistent with avascular necrosis without ar ticular surface collapse. OTHER: No other significant finding. IMPRESSION: No evidence of acute intra-abdominal infectious/inflammatory process. Marked hepatic st eatosis. 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 TECHNICAL DOCUMENTATION: JOB ID: [id number] Quality ID # [id number]: Final reports with documentation of one or more dose reduction techniques (e.g., Au tomated exposure control, adjustment of the mA and/or kV according to patient size, use of iterative reconstruction technique) 2010 [employer]- All Rights Reserved Reading location - IP/workstation name: [email or web address]
--- NOTE | 2020-05-01 18:40 | ER Document Report ---
ED General - General Chief Complaint: Epigastric Pain Stated Complaint: ABDOMINAL PAIN,DIZZY WEAKNESS Time Seen by Provider: 05/01/20 14:52 Mode of Arrival: Ambulatory Information source: Patient TRAVEL OUTSIDE OF THE [place] IN LAST 30 DAYS: No - HPI Notes: Patient presents with a complaint of epigastric pain. Patient is a poor historian. Patient cannot tell me how long he has had the epigastric pain. He denies any radiation of the pain. He states it is a burning sensation. It appears to get worse when I touch it and better if I leave it alone. There is no known history of vomiting no problems with stools or urine known. No known history of fever. Patient states that he does drink approximately 1 beer per day. He states that he does smoke as well. He denies any recent trauma. He denies any previous history of surgical procedures on the abdomen. He describes the pain as moderate to severe. - Related Data Allergies/Adverse Reactions: No Known Allergies Allergy (Verified 05/01/20 15:10) Home Medications: tums prn Past Medical History - General Information source: Patient, Friend - Social History Smoking Status: Current Some Day Smoker Chew tobacco use (# tins/day): No Frequency of alcohol use: 2 beers a day Drug Abuse: None Family History: Reviewed & Not Pertinent Patient has homicidal ideation: No - Past Medical History Cardiac Medical History: Reports: Hx Hypertension Renal/ Medical History: Denies: Hx Peritoneal Dialysis Musculoskeletal Medical History: Reports Hx Arthritis, Reports Hx Gout, Reports Hx Musculoskeletal Deformity, Reports Hx Musculoskeletal Trauma Review of Systems - Review of Systems Constitutional: denies: Chills, Fever Cardiovascular: denies: Chest pain, Palpitations Respiratory: denies: Cough, Short of breath -: Yes All other systems reviewed and negative Physical Exam - Vital signs Vitals: Temp Pulse Resp BP Pulse Ox 98.9 F 109 H 18 121/80 96 05/01/20 14:43 05/01/20 14:43 05/01/20 14:43 05/01/20 14:43 05/01/20 14:43 Interpretation: Tachycardic - General General appearance: Appears well, Alert - HEENT Head: Normocephalic, Atraumatic Eyes: Normal Pupils: PERRL - Respiratory Respiratory status: No respiratory distress Chest status: Nontender Breath sounds: Normal Chest palpation: Normal - Cardiovascular Rhythm: Regular Heart sounds: Normal auscultation Murmur: No - Abdominal Inspection: Normal Distension: No distension Bowel sounds: Normal Tenderness: Tender - Patient has moderate tenderness to palpation of the epigastric area but no rebound or guarding. Organomegaly: No organomegaly - Back Back: Normal, Nontender - Extremities General upper extremity: Normal inspection, Nontender, Normal color, Normal ROM, Normal temperature General lower extremity: Normal inspection, Nontender, Normal color, Normal ROM, Normal temperature, Normal weight bearing. No: Artem's sign - Neurological Cognition: Confused Orientation: Disoriented to place, Disoriented to time [place] Coma Scale Eye Opening: Spontaneous [place] Coma Scale Verbal: Confused [place] Coma Scale Motor: Obeys Commands [place] Coma Scale Total: 14 Speech: Expressive aphasia - Intermittently Cranial nerves: Normal Cerebellar coordination: Gait ataxia Motor strength normal: LUE, RUE, LLE, RLE Additional motor exam normals: Equal stitcher around. No: Pronator drift Sensory: Normal - Psychological Associated symptoms: Normal affect, Normal mood - Skin Skin Temperature: Warm Skin Moisture: Dry Skin Color: Normal Course - Re-evaluation Re-evalutation: 05/01/20 18:37 Patient presents with epigastric pain. When talking to the patient he will randomly have word salad. He will state words that are either nonsense or otherwise do not go together. Patient will do this intermittently with normal speech as well. Patient tells me that Tremayne Howard is the president. He is not able to tell me the month or the year. He is not able to tell me where he is at. He tells me that he is in [place]. I called and talked to the friend who dropped him off. She states that he lives by himself and that she occasionally looks in on him. She states that she picked him up today to help her move some furniture and she noticed that he would stare off into space and that she would have to help him ambulate. She states that he does drink heavily every day. Patient's alcohol is significantly elevated and at this time it is very difficult to ascertain how much of his neurological problems are secondary to acute alcohol intox and what may be possibly permanent neurological changes secondary to chronic alcohol use as well as what may be possibly TIA type symptoms. At this time the most prudent course seems to be the have the patient further evaluated in the hospital since patient lives alone and has no primary care physician. - Vital Signs Vital signs: Temp Pulse Resp BP Pulse Ox 98.9 F 109 H 18 121/80 96 05/01/20 14:43 05/01/20 14:43 05/01/20 14:43 05/01/20 14:43 05/01/20 14:43 - Laboratory Result Diagrams: 05/01/20 15:52 05/01/20 15:52 Laboratory results interpreted by me: 05/01/20 05/01/20 15:52 15:52 RBC 4.12 L MCV 107 H MCH 36.8 H Lymph % (Auto) 47.6 H [place] % (Auto) 13.3 H Seg Neutrophils % 34.0 L Sodium 132.4 L Chloride 95 L Calcium 10.3 H AST 96 H Serum Alcohol 384 H* - Diagnostic Test Radiology reviewed: Image reviewed, Reports reviewed - EKG Interpretation by Me EKG shows normal: Sinus rhythm Rate: Tachycardia - 103 Rhythm: NSR [place]/QRS: No: Right axis deviation, Left axis deviation Discharge - Discharge Clinical Impression: Confusion with non-focal neuro exam Acute alcohol intoxication with alcoholism Qualifiers: Complication of substance-induced condition: with unspecified complication Qualified Code(s): F10.229 - Alcohol dependence with intoxication, unspecified Condition: Serious Disposition: ADMITTED INPATIENT Admitting Provider: Uilses (Hospitalist) Unit Admitted: Medical Floor
--- NOTE | 2020-05-01 20:30 | PDOC H&P ---
History of Present Illness Admission Date/PCP: 05/01/20 18:49 History of Present Illness: TORSTEN CHAPIN JR is a 54 year old male who is a heavy daily alcohol drinker who was brought in today because he was acutely intoxicated while he was helping a friend move some furniture. When he came in he was complaining of abdominal pain but had an extensive work-up including blood labs and an abdominal CT, all of which were negative. He was not complaining of any abdominal pain now. They sent him upstairs before I agreed to accept him. When I saw him he was sitting in bed with his legs crossed in his arms folded across his chest watching professional wrestling on television. He has no focal neurological abnormalities. Despite documenting a nonfocal neurological examination, the ER provider felt he should be worked up for a TIA, despite the fact that, in addition to a negative neurological examination, the patient's alcohol level is almost 400. Head CT was negative. He takes no home medications, but asked me if I would write him a prescription for pain medicine and a "nerve pill." I obviously declined. He said he only had one beer around 4 AM, but there is no way that one beer caused his alcohol level to be this high. Past Medical History Cardiac Medical History: Reports: Hypertension Musculoskeltal Medical History: Reports: Arthritis, Gout Social History Smoking Status: Current Some Day Smoker Electronic Cigarette use?: No Family History Family History: Reviewed & Not Pertinent Parental Family History Reviewed: Yes Children Family History Reviewed: Yes Sibling(s) Family History Reviewed.: Yes Medication/Allergy Home Medications: No Home Medications 05/01/20 Allergies/Adverse Reactions: No Known Allergies Allergy (Verified 05/01/20 15:10) Review of Systems All systems: reviewed and no additional remarkable complaints except as stated - All systems were reviewed and were negative except as noted in the HPI Physical Exam Vital Signs: Temp Pulse Resp BP Pulse Ox 98.9 F 109 H 18 121/80 96 05/01/20 14:43 05/01/20 14:43 05/01/20 14:43 05/01/20 14:43 05/01/20 14:43 Intake & Output 04/30/20 05/01/20 05/02/20 06:59 06:59 06:59 Intake Total 1000 Balance 1000 Weight 72.575 kg General appearance: PRESENT: no acute distress, cooperative, disheveled Head exam: PRESENT: atraumatic, normocephalic Eye exam: PRESENT: EOMI, PERRLA, other - His eyes were bloodshot. ABSENT: nystagmus, scleral icterus Ear exam: PRESENT: normal external ear exam Mouth exam: PRESENT: moist, neck supple Throat exam: ABSENT: post pharyngeal erythema Neck exam: PRESENT: full ROM. ABSENT: carotid bruit, JVD, lymphadenopathy, meningismus, tenderness, thyromegaly Respiratory exam: PRESENT: clear to auscultation santosh, symmetrical, unlabored. ABSENT: accessory muscle use, chest wall tenderness, crackles, prolonged expiratory phas, rhonchi, tachypnea, wheezes Cardiovascular exam: PRESENT: RRR, +S1, +S2 Pulses: PRESENT: normal carotid pulses Vascular exam: PRESENT: normal capillary refill GI/Abdominal exam: PRESENT: normal bowel sounds, soft. ABSENT: distended, guarding, rebound, tenderness Extremities exam: ABSENT: clubbing, pedal edema Musculoskeletal exam: PRESENT: ambulatory, normal inspection. ABSENT: deformity Neurological exam: PRESENT: awake, oriented to person, oriented to place, oriented to situation, CN II-XII grossly intact. ABSENT: motor sensory deficit Psychiatric exam: PRESENT: appropriate affect, normal mood Skin exam: PRESENT: dry, warm Results Laboratory Results: 05/01/20 15:52 05/01/20 15:52 05/01/20 05/01/20 05/01/20 15:52 15:52 15:52 WBC 5.2 RBC 4.12 L Hgb 15.1 Hct 44.0 MCV 107 H MCH 36.8 H MCHC 34.4 RDW 13.7 Plt Count 242 Seg Neutrophils % 34.0 L Sodium 132.4 L Potassium 4.6 Chloride 95 L Carbon Dioxide 27 Anion Gap 10 BUN 9 Creatinine 1.10 Est GFR ( Amer) > 60 Glucose 90 Calcium 10.3 H Total Bilirubin 0.4 AST 96 H Alkaline Phosphatase 67 Total Protein 7.5 Albumin 4.1 Lipase 283.7 Urine Color YELLOW Urine Appearance CLEAR Urine pH 5.0 Ur Specific [place] 1.004 Urine Protein NEGATIVE Urine Glucose (UA) NEGATIVE Urine Ketones NEGATIVE Urine Blood NEGATIVE Urine Nitrite NEGATIVE Ur Leukocyte Esterase NEGATIVE Urine WBC (Auto) 1 Urine RBC (Auto) 1 05/01/20 15:52 Troponin I < 0.012 Impressions: Abdomen/Pelvis CT 05/01/20 15:01 IMPRESSION: No evidence of acute intra-abdominal infectious/inflammatory process. Marked hepatic steatosis. 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 Chest X-Ray 05/01/20 15:01 IMPRESSION: NO ACUTE RADIOGRAPHIC FINDING IN THE CHEST. Head CT 05/01/20 15:59 IMPRESSION: NORMAL BRAIN CT WITHOUT CONTRAST. EVIDENCE OF ACUTE STROKE: NO. Assessment and Plan - Diagnosis (1) Acute alcohol intoxication with alcoholism Qualifiers: Complication of substance-induced condition: uncomplicated Qualified Code(s): F10.220 - Alcohol dependence with intoxication, uncomplicated Is this a current diagnosis for this admission?: Yes Plan: This patient has not had a TIA. There is no suspicion for stroke. He had a nonfocal neurological examination and was acutely intoxicated with alcohol. I do not understand how given these facts that there was even a mention of a TIA work-up. I do not think this patient needs a TIA work-up. We are going to monitor him overnight and let him go home in the morning. - Time Time Spent with patient: 35 or more minutes Anticipated Discharge Disposition: Home, Self Care Anticipated Discharge Timeframe: within 24 hours
--- NOTE | 2020-05-02 15:24 | EKG REPORT ---
SEVERITY:- BORDERLINE ECG - SINUS TACHYCARDIA PROBABLE LEFT ATRIAL ABNORMALITY : Confirmed by: Lee Dhillon MD 02-May-2020 15:24:27
[2020-05-02 17:41] VITALS: BP 142/90
--- NOTE | 2020-05-05 07:46 | PDOC DISCHARGE SUMMARY ---
Impression - Admit/DC Date/PCP Admission Date/Primary Care Provider: 05/01/20 18:49 Discharge Date: 05/02/20 - Discharge Diagnosis (1) Acute alcohol intoxication with alcoholism Is this a current diagnosis for this admission?: Yes - Additional Information Resuscitation Status: Full Code Discharge Diet: Regular Discharge Activity: Activity As Tolerated, Balance Activity w/Rest, Slowly Increase Activity Home Medications: No Home Medications 05/01/20 History of Present Illiness History of Present Illness: Per H&P by Dr. Montgomery: TORSTEN CHAPIN JR is a 54 year old male who is a heavy daily alcohol drinker who was brought in today because he was acutely intoxicated while he was helping a friend move some furniture. When he came in he was complaining of abdominal pain but had an extensive work-up including blood labs and an abdominal CT, all of which were negative. He was not complaining of any abdominal pain now. They sent him upstairs before I agreed to accept him. When I saw him he was sitting in bed with his legs crossed in his arms folded across his chest watching professional wrestling on television. He has no focal neurological abnormalities. Despite documenting a nonfocal neurological examination, the ER provider felt he should be worked up for a TIA, despite the fact that, in addition to a negative neurological examination, the patient's alcohol level is almost 400. Head CT was negative. He takes no home medications, but asked me if I would write him a prescription for pain medicine and a "nerve pill." I obviously declined. He said he only had one beer around 4 AM, but there is no way that one beer caused his alcohol level to be this high. Hospital Course Hospital Course: The patient was admitted to the medical floor and monitored overnight for safety. He did receive 1 L NS bolus while still in the ED and a GI cocktail for reflux w/ resolution of his symptoms. The patient's mentation had returned to normal by the time he was evaluated by the furnace process supervisor. At the time of my visit, approximately 16 hours later, patient was A&Ox4, could recall the events of the previous day, eating >75% of meals, independently ambulatory and requesting to discharge to home. He was advised to remain hydrated, avoid heat exposure, and to decrease his alcohol intake. Physical Exam Vital Signs: Temp Pulse Resp BP Pulse Ox 98.4 F 112 H 16 142/90 H 100 05/02/20 17:40 05/02/20 17:40 05/02/20 17:40 05/02/20 17:40 05/02/20 17:40 General appearance: PRESENT: no acute distress, cooperative, disheveled, well- developed, well-nourished Head exam: PRESENT: atraumatic, normocephalic Eye exam: PRESENT: conjunctiva pink, EOMI, PERRLA. ABSENT: scleral icterus Mouth exam: PRESENT: moist, tongue midline Teeth exam: PRESENT: poor dentation Respiratory exam: PRESENT: clear to auscultation santosh, symmetrical, unlabored. ABSENT: rales, rhonchi, wheezes Cardiovascular exam: PRESENT: RRR, +S1, +S2. ABSENT: diastolic murmur, rubs, systolic murmur Pulses: PRESENT: normal dorsalis pedis pul Vascular exam: PRESENT: normal capillary refill GI/Abdominal exam: PRESENT: normal bowel sounds, soft. ABSENT: distended, guarding, mass, organolmegaly, rebound, tenderness Rectal exam: PRESENT: deferred Extremities exam: PRESENT: full ROM. ABSENT: calf tenderness, clubbing, pedal edema Musculoskeletal exam: PRESENT: ambulatory Neurological exam: PRESENT: alert, awake, oriented to person, oriented to place, oriented to time, oriented to situation, CN II-XII grossly intact. ABSENT: motor sensory deficit Psychiatric exam: PRESENT: appropriate affect, normal mood. ABSENT: homicidal ideation, suicidal ideation Skin exam: PRESENT: dry, intact, warm. ABSENT: cyanosis, rash Results Laboratory Results: WBC 5.2 10^3/uL (4.0-10.5) 05/01/20 15:52 RBC 4.12 10^6/uL (4.35-5.55) L 05/01/20 15:52 Hgb 15.1 g/dL (13.5-17.0) 05/01/20 15:52 Hct 44.0 % (37.9-51.0) 05/01/20 15:52 MCV 107 fl (80-97) H 05/01/20 15:52 MCH 36.8 pg (27.0-33.4) H 05/01/20 15:52 MCHC 34.4 g/dL (32.0-36.0) 05/01/20 15:52 RDW 13.7 % (11.5-14.0) 05/01/20 15:52 Plt Count 242 10^3/uL (150-450) 05/01/20 15:52 Lymph % (Auto) 47.6 % (13-45) H 05/01/20 15:52 [place] % (Auto) 13.3 % (3-13) H 05/01/20 15:52 Eos % (Auto) 4.6 % (0-6) 05/01/20 15:52 Baso % (Auto) 0.5 % (0-2) 05/01/20 15:52 Absolute Neuts (auto) 1.8 10^3/uL (1.7-8.2) 05/01/20 15:52 Absolute Lymphs (auto) 2.5 10^3/uL (0.5-4.7) 05/01/20 15:52 Absolute Monos (auto) 0.7 10^3/uL (0.1-1.4) 05/01/20 15:52 Absolute Eos (auto) 0.2 10^3/uL (0.0-0.6) 05/01/20 15:52 Absolute Basos (auto) 0.0 10^3/uL (0.0-0.2) 05/01/20 15:52 Seg Neutrophils % 34.0 % (42-78) L 05/01/20 15:52 Sodium 132.4 mmol/L (137-145) L 05/01/20 15:52 Potassium 4.6 mmol/L (3.6-5.0) 05/01/20 15:52 Chloride 95 mmol/L (98-107) L 05/01/20 15:52 Carbon Dioxide 27 mmol/L (22-30) 05/01/20 15:52 Anion Gap 10 (5-19) 05/01/20 15:52 BUN 9 mg/dL (7-20) 05/01/20 15:52 Creatinine 1.10 mg/dL (0.52-1.25) 05/01/20 15:52 Est GFR ( Amer) > 60 (>60) 05/01/20 15:52 Est GFR (MDRD) Non-Af > 60 (>60) 05/01/20 15:52 Glucose 90 mg/dL (75-110) 05/01/20 15:52 POC Glucose 87 mg/dL (70-110) 05/01/20 15:49 Calcium 10.3 mg/dL (8.4-10.2) H 05/01/20 15:52 Total Bilirubin 0.4 mg/dL (0.2-1.3) 05/01/20 15:52 Direct Bilirubin 0.1 mg/dL (0.0-0.4) 05/01/20 15:52 Neonat Total Bilirubin Not Reportable 05/01/20 15:52 Neonat Direct Bilirubin Not Reportable 05/01/20 15:52 Neonat Indirect Bili Not Reportable 05/01/20 15:52 AST 96 U/L (17-59) H 05/01/20 15:52 ALT 44 U/L (<50) 05/01/20 15:52 Alkaline Phosphatase 67 U/L (38-126) 05/01/20 15:52 Troponin I < 0.012 ng/mL 05/01/20 15:52 Total Protein 7.5 g/dL (6.3-8.2) 05/01/20 15:52 Albumin 4.1 g/dL (3.5-5.0) 05/01/20 15:52 Lipase 283.7 U/L (23-300) 05/01/20 15:52 Urine Color YELLOW 05/01/20 15:52 Urine Appearance CLEAR 05/01/20 15:52 Urine pH 5.0 (5.0-9.0) 05/01/20 15:52 Ur Specific [place] 1.004 05/01/20 15:52 Urine Protein NEGATIVE mg/dL (NEGATIVE) 05/01/20 15:52 Urine Glucose (UA) NEGATIVE mg/dL (NEGATIVE) 05/01/20 15:52 Urine Ketones NEGATIVE mg/dL (NEGATIVE) 05/01/20 15:52 Urine Blood NEGATIVE (NEGATIVE) 05/01/20 15:52 Urine Nitrite NEGATIVE (NEGATIVE) 05/01/20 15:52 Urine Bilirubin NEGATIVE (NEGATIVE) 05/01/20 15:52 Urine Urobilinogen NEGATIVE mg/dL (<2.0) 05/01/20 15:52 Ur Leukocyte Esterase NEGATIVE (NEGATIVE) 05/01/20 15:52 Urine WBC (Auto) 1 /HPF 05/01/20 15:52 Urine RBC (Auto) 1 /HPF 05/01/20 15:52 Urine Bacteria (Auto) TRACE /HPF 05/01/20 15:52 Squamous Epi Cells Auto 3 /HPF 05/01/20 15:52 Urine Mucus (Auto) RARE /LPF 05/01/20 15:52 Urine Ascorbic Acid NEGATIVE (NEGATIVE) 05/01/20 15:52 Urine Opiates Screen NEGATIVE 05/01/20 15:52 Urine Methadone Screen NEGATIVE 05/01/20 15:52 Ur Barbiturates Screen NEGATIVE 05/01/20 15:52 Ur Phencyclidine Scrn NEGATIVE 05/01/20 15:52 Ur Amphetamines Screen NEGATIVE 05/01/20 15:52 U Benzodiazepines Scrn NEGATIVE 05/01/20 15:52 Urine Cocaine Screen NEGATIVE 05/01/20 15:52 U Marijuana (THC) Screen NEGATIVE 05/01/20 15:52 Serum Alcohol 384 mg/dL (NONE DETECTED) H* 05/01/20 15:52 08 15:52 Troponin I < 0.012 Impressions: Abdomen/Pelvis CT 05/01/20 15:01 IMPRESSION: No evidence of acute intra-abdominal infectious/inflammatory proce ss. Marked hepatic steatosis. 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 Chest X-Ray 05/01/20 15:01 IMPRESSION: NO ACUTE RADIOGRAPHIC FINDING IN THE CHEST. Head CT 05/01/20 15:59 IMPRESSION: NORMAL BRAIN CT WITHOUT CONTRAST. EVIDENCE OF ACUTE STROKE: NO. Plan Plan of Treatment: Patient is discharged home in stable condition. He is advised to follow-up with his primary care provider within 1 week. Instructed to drink plenty of water. Decrease alcohol intake. Return to the emergency department as needed for concerning symptoms. Time Spent: Greater than 30 Minutes Stroke Is this a Stroke Patient?: No Acute Heart Failure - Is this a Heart Failure Patient?: No
== END 2020-05-02 17:40 | disposition home or self-care (01) ==
LOC: ER 14:38 → EH 18:49 → INTOOBSV 18:49 → 5 19:54
PROVIDERS: ADMIT Family Medicine; ATTEND Registered Nurse
DX: F10.220 Alcohol dependence with intoxication, uncomplicated (principal); Y90.8 Blood alcohol level of 240 mg/100 ml or more; R00.0 Tachycardia, unspecified; F17.200 Nicotine dependence, unspecified, uncomplicated; K21.9 Gastro-esophageal reflux disease without esophagitis; R07.9 Chest pain, unspecified; R06.02 Shortness of breath; R55 Syncope and collapse; E46 Unspecified protein-calorie malnutrition; Z60.2 Problems related to living alone
CPT/HCPCS: 93005; 99285; 36415; 82962; 80307 ×2; 83690; 85025; 80053; 81001; 84484; 71046; 70450; 74177; 93010; G0378 ×3; J3490 ×5; J7030